=== PATIENT | female | born 1955 ===

== ENCOUNTER 2021-11-11 10:32 | Emergency (ER) | payer MEDICARE ==
--- NOTE | 2021-11-11 11:08 | ERPHSYRPT ---
- History of Present Illness Time Seen by Provider: 11/11/21 11:08 Source: patient Exam Limitations: no limitations Patient Subjective Stated Complaint: . Triage Nursing Assessment: . Physician History: This is a 66-year-old white female patient who has a history of hypothyroidism and is on levothyroxine. She takes no other medications. This morning, when she woke up at approximately 7:30 in the morning, she noticed sudden onset of bright flashes spots in the periphery on the right side. She did not lose her vision. However, she did notice soon after there was floaters with intermittent cloudiness of the right eye. She has not lost her vision. The flashing spots have resolved. The cloudiness of vision of the right eye has resolved. What remains her floaters. She has not had any pain. She has not had a thing like this in the past. She has no history of hypertension. She has no headache. She does not have an eye doctor. Timing/Duration: today Location: right eye Severity: mild Apparent Injury: no Associated Symptoms: other (Resolved cloudiness of the right eye. Resolved white flashes in the periphery of her visual field on the right side) Visual Assistive Devices: None Chemical Exposure: No Trauma: No Welding Arc/Tanning Bed Exposure: No Allergies/Adverse Reactions: No Known Drug Allergies Allergy (Unverified 11/11/21 11:01) Home Medications: Levothyroxine Sodium 112 Mcg [Synthroid 112 Mcg] 112 mcg PO BID 11/11/21 [History] Hx Tetanus, Diphtheria Vaccination/Date Given: No Hx Influenza Vaccination/Date Given: No Travel Risk - International Travel Have you traveled outside of the country in past 3 weeks: No - Coronavirus Screening Are you exhibiting any of the following symptoms?: No Close contact with a COVID-19 positive Pt in past 14-21 Days: No - Vaccine Status Have you recieved a Covid-19 vaccination: Yes Electric Plater: LISNR - Vaccination Dates Date of 2cond Vaccination (if applicable): 2020 - Review of Systems Constitutional: No Symptoms Eyes: Vision Changes Ears, Nose, & Throat: No Symptoms Respiratory: No Symptoms Cardiac: No Symptoms Abdominal/Gastrointestinal: No Symptoms Genitourinary Symptoms: No Symptoms Musculoskeletal: No Symptoms Skin: No Symptoms Neurological: No Symptoms Psychological: No Symptoms Endocrine: No Symptoms Hematologic/Lymphatic: No Symptoms Immunological/Allergic: No Symptoms All Other Systems: Reviewed and Negative - Past Medical History Pertinent Past Medical History: Yes Endocrine Medical History: Hypothyroidism - Past Surgical History Past Surgical History: Yes Gastrointestinal: Appendectomy Female Surgical History: Hysterectomy Other Surgical History: L ankle replaced - Social History Smoking Status: Never smoker Drug Use: none Patient Lives Alone: No - Nursing Vital Signs Nursing Vital Signs: Initial Vital Signs Temperature 98.0 F 11/11/21 10:56 Pulse Rate 96 H 11/11/21 10:56 Respiratory Rate 16 11/11/21 10:56 Blood Pressure 156/88 11/11/21 10:56 O2 Sat by Pulse Oximetry 98 11/11/21 10:56 Pain Scale Pain Intensity 0 - Physical Exam General Appearance: no apparent distress, alert, anxiety Vision Acuity Degree Evaluation Phase: Uncorrected Eye Exam: left eye: vision changes (Floaters right eye), bilateral eye: normal inspection, PERRL, EOMI Ears, Nose, Throat Exam: normal ENT inspection, moist mucous membranes Neck Exam: normal inspection, non-tender, supple, full range of motion Respiratory Exam: normal breath sounds, lungs clear, airway intact, No chest tenderness, No respiratory distress Cardiovascular Exam: regular rate/rhythm, normal heart sounds, normal peripheral pulses Gastrointestinal Exam: No tenderness Neurologic: alert, oriented x 3, cooperative, candle maker II-XII nml as tested, normal mood/affect, nml cerebellar function, nml station & gait, sensation nml Skin Exam: normal color, warm, dry Lymphatic: No adenopathy SpO2 Interpretation: normal SpO2: 98 O2 Delivery: Room Air - Course Nursing assessment & vital signs reviewed: Yes Ordered Tests: Active Orders 24 hr Category Date Time Status HEAD WITHOUT CONTRAST [CT] Stat Exams 11/11/21 12:04 Completed - Progress Progress: improved, re-examined Progress Note: 11/11/21 12:25 CAT scan of the head without contrast shows a nonacute senile brain. There is an incidental finding of a small, remote infarct of the right cerebellum. There are no acute intracranial abnormalities. Counseled pt/family regarding: diagnosis, need for follow-up - Departure Departure Disposition: Home Clinical Impression: Visual changes Condition: Stable Critical Care Time: No Referrals: MELISSA SAMS MD [Primary Care Provider] - Follow up/PCP as directed Additional Instructions: Follow-up at the [facility] office of [facility] in [facility]. Your appointment is at 9:30 in the morning on November 13, 2021.
--- NOTE | 2021-11-11 12:20 | XRAY ---
Indication: Right visual change. Multiple contiguous axial images obtained through the head without contrast. Comparison: None Age-appropriate global atrophy and minimal periventricular degenerative micro-ischemia bilaterally. 1 cm focus old infarct right cerebellum. No acute intracranial hemorrhage, abnormal extra-axial fluid collection, or mass effect. Fourth ventricle is midline without hydrocephalus. Estrella-white matter differentiation preserved. Bony calvarium intact. Visualized paranasal sinuses and mastoid air cells are clear. Impression: Nonacute senile brain. Incidental small remote infarct right cerebellum.
[2021-11-11 12:48] VITALS: BP 149/78; PULSE 77; O2SAT 96
== END 2021-11-11 12:46 | disposition home or self-care (01) ==
LOC: ED 10:32
DX: H53.8 Other visual disturbances (principal)
CPT/HCPCS: 70450; 99283